=== PATIENT | female | born 1980 | race African-American/Black ===

== ENCOUNTER 2016-10-01 23:26 | Inpatient (IN) | payer BC ==
[~2016-10-01] VITALS: Ht 170.2 cm; Wt 62.1 kg
[~2016-10-01 23:26] MED LIST: ACET1TAB33 PO; ALPR0.25 PO; ALPR0.5T PO; AMIT10TA PO; AMIT75TA PO; FLUO20CA16 PO; METF500T9 PO; TRAM50TA PO; TRAZ50TA15 PO; WATERPILL
[2016-10-01 23:51] LABS: BILIRUBIN,URINE NEGATIVE (NEG); GLUCOSE,URINE NEGATIVE (NEG); NITRITE,URINE NEGATIVE (NEG); PROTEIN,URINE NEGATIVE (NEG-TRACE)
[2016-10-01 23:55] LABS: BACTERIA,URINE MANY /HPF (0-FEW); RBC,URINE OCC /HPF (0-2); SQUAMOUS EPITHELIAL CELL,UR MANY /LPF
[2016-10-02 00:39] LABS: BASO # 0.1 x10^3/uL (0.0-0.2); BASO % 1 % (0-3); EOS % 2 % (0-3); HEMATOCRIT 35.1 % (36.0-47.0); HEMOGLOBIN 11.6 g/dL (12.0-15.5); LYMPH # 3.2 x10^3/uL (1.0-4.8); LYMPH % 24 % (24-48); MEAN CORPUSCULAR HEMOGLOBIN 31 pg (25-35); MEAN CORPUSCULAR HGB CONC 33 g/dL (31-37); MEAN CORPUSCULAR VOLUME 95 fL (79-100); MONO % 7 % (0-9); NEUT % 66 % (31-73); PLATELET COUNT 217 x10^3/uL (140-400); RED BLOOD COUNT 3.69 x10^6/uL (3.50-5.40); RED CELL DISTRIBUTION WIDTH 13.5 % (11.5-14.5); WHITE BLOOD COUNT 13.3 x10^3/uL (4.0-11.0)
[2016-10-02] MEDS ORDERED: ONDANSETRON PF 4 MG/2 ML VIAL. IV ONE (00:45)
[2016-10-02] MEDS ORDERED: IV NORMAL SALINE 1000ML BAG 1,000 ML IV SCH (00:45)
--- NOTE | 2016-10-02 00:46 | ED.ADGEN ---
Past Medical History Past Medical History: Anxiety, Depression, Diabetes-Type II, Hypertension, Other Additional Past Medical Histor: PTSD Past Surgical History: , Other Additional Past Surgical Histo: bilateral carpal tunnel release Alcohol Use: Occasionally Drug Use: None Adult General Chief Complaint Chief Complaint: ABDOMINAL PAIN HPI HPI Patient is a 36 year old woman, history of type 2 diabetes mellitus, hypertension, anxiety, fibromyalgia, who presents to the emergency department with complaint of abdominal pain that woke her from sleep around 10 PM. Patient states she has been experiencing nausea, vomiting, epigastric and right upper quadrant abdominal pain. States the pain does radiate somewhat to her back. Denies any chest pain or shortness of breath. She she's been under increased stress lately due to family events. She denies any recent travel, states that she has had several episodes of "salty" emesis. No blood. Has not had a previous surgeries on her abdomen. She denies any fevers or chills, any focal weakness, numbness or tingling. No recent travel or Review of Systems Review of Systems Constitutional: Denies fever or chills. [] Eyes: Denies change in visual acuity. [] HENT: Denies nasal congestion or sore throat. [] Respiratory: Denies cough or shortness of breath. [] Cardiovascular: Denies chest pain or edema. [] GI: Abdominal pain, nausea, vomiting, no bloody stools or diarrhea. Last bowel was earlier today and was normal. No lower abdominal pain. : Denies dysuria. [] Musculoskeletal: Denies back pain or joint pain. [] Integument: Denies rash. [] Neurologic: Denies headache, focal weakness or sensory changes. [] Endocrine: Denies polyuria or polydipsia. [] Lymphatic: Denies swollen glands. [] Psychiatric: Denies depression or anxiety. [] Current Medications Current Medications Current Medications Medications (Trade) Dose Ordered Sig/Andressa Start Time Stop Time Status Last Admin Dose Admin Ceftriaxone Sodium 50 ml @ 100 mls/hr 1X ONCE 10/02/16 02:00 10/02/16 02:29 DC 10/02/16 04:58 100 MLS/HR Fentanyl Citrate (Fentanyl 2ml Vial) 25 mcg PRN Q15MIN PRN 10/02/16 00:45 10/03/16 00:44 10/02/16 01:57 25 MCG Ondansetron HCl (Zofran) 4 mg 1X ONCE 10/02/16 00:45 10/02/16 00:46 DC 10/02/16 01:02 4 MG Potassium Chloride 40 meq/ Sodium Chloride 1,020 ml @ 75 mls/hr 1X ONCE 10/02/16 01:30 10/02/16 15:05 10/02/16 01:56 75 MLS/HR Sodium Chloride 1,000 ml @ 1,000 mls/hr Q1H 10/02/16 00:45 10/02/16 01:44 DC 10/02/16 01:03 1,000 MLS/HR Allergies Allergies Allergies Coded Allergies Type Severity Reaction Last Updated Verified Sulfa (Sulfonamide Antibiotics) Allergy Severe swelling 01/07/16 Yes Physical Exam Physical Exam Constitutional: Well developed, well nourished, mild distress secondary to discomfort, non-toxic appearance. [] HENT: Normocephalic, atraumatic, bilateral external ears normal, oropharynx moist, no oral exudates, nose normal. [] Eyes: PERRLA, EOMI, conjunctiva normal, no discharge. [] Neck: Normal range of motion, no tenderness, supple, no stridor. [] Cardiovascular:Heart rate regular rhythm, no murmur , S1, S2, rubs or gallops. [ ] Lungs & Thorax: Bilateral breath sounds clear to auscultation, no wheezing, rhonchi, rales. No chest or crepitus or tenderness. [] Abdomen: Bowel sounds normal, soft, tenderness to palpation in the epigastric and right upper quadrant region, mild voluntary guarding, no rebound or rigidity , no masses, no pulsatile masses. [] Skin: Warm, dry, no erythema, no rash. [] Back: No tenderness, no CVA tenderness. [] Extremities: No tenderness, no cyanosis, no clubbing, ROM intact, no edema. [ Negative Homans sign.] Neurologic: Alert and oriented X 3, normal motor function, normal sensory function, no focal deficits noted. [] Psychologic: Affect normal, judgement normal, mood normal. [] Current Patient Data Vital Signs Vital Signs Date Time Temp Pulse Resp B/P (MAP) Pulse Ox O2 Delivery O2 Flow Rate FiO2 10/02/16 02:00 68 97/63 (74) 98 Room Air 10/01/16 23:48 98.6 98.6 Lab Values Laboratory Tests Test 10/01/16 22:41 10/01/16 23:45 10/02/16 00:01 10/02/16 00:30 POC Urine HCG, Qualitative Hcg negative (Negative) Urine Collection Type Unknown Urine Color Yellow Urine Clarity Cloudy Urine pH 6.0 Urine Specific [place] 1.015 Urine Protein Negative mg/dL (NEG-TRACE) Urine Glucose (UA) Negative mg/dL (NEG) Urine Ketones (Stick) Negative mg/dL (NEG) Urine Blood Negative (NEG) Urine Nitrite Negative (NEG) Urine Bilirubin Negative (NEG) Urine Urobilinogen Dipstick 1.0 mg/dL (0.2 mg/dL) Urine Leukocyte Esterase Moderate (NEG) Urine RBC Occ /HPF (0-2) Urine WBC 11-20 /HPF (0-4) Urine Squamous Epithelial Cells Many /LPF Urine Bacteria Many /HPF (0-FEW) Urine Mucus Marked /LPF Urine Opiates Screen Neg (NEG) Urine Methadone Screen Neg (NEG) Urine Barbiturates Neg (NEG) Urine Phencyclidine Screen Neg (NEG) Urine Amphetamine/Methamphetamine Neg (NEG) Urine Benzodiazepines Screen Neg (NEG) Urine Cocaine Screen Neg (NEG) Urine Cannabinoids Screen Pos (NEG) Urine Ethyl Alcohol Neg (NEG) White Blood Count 13.3 x10^3/uL (4.0-11.0) H Red Blood Count 3.69 x10^6/uL (3.50-5.40) Hemoglobin 11.6 g/dL (12.0-15.5) L Hematocrit 35.1 % (36.0-47.0) L Mean Corpuscular Volume 95 fL (79-100) Mean Corpuscular Hemoglobin 31 pg (25-35) Mean Corpuscular Hemoglobin Concent 33 g/dL (31-37) Red Cell Distribution Width 13.5 % (11.5-14.5) Platelet Count 217 x10^3/uL (140-400) Neutrophils (%) (Auto) 66 % (31-73) Lymphocytes (%) (Auto) 24 % (24-48) Monocytes (%) (Auto) 7 % (0-9) Eosinophils (%) (Auto) 2 % (0-3) Basophils (%) (Auto) 1 % (0-3) Neutrophils # (Auto) 8.9 x10^3uL (1.8-7.7) H Lymphocytes # (Auto) 3.2 x10^3/uL (1.0-4.8) Monocytes # (Auto) 0.9 x10^3/uL (0.0-1.1) Eosinophils # (Auto) 0.3 x10^3/uL (0.0-0.7) Basophils # (Auto) 0.1 x10^3/uL (0.0-0.2) Sodium Level 142 mmol/L (136-145) Potassium Level 2.8 mmol/L (3.5-5.1) *L Chloride Level 103 mmol/L (98-107) Carbon Dioxide Level 29 mmol/L (21-32) Anion Gap 10 (6-14) Blood Urea Nitrogen 6 mg/dL (7-20) L Creatinine 0.9 mg/dL (0.6-1.0) Estimated GFR (Cockcroft-Gault) 84.8 BUN/Creatinine Ratio 7 (6-20) Glucose Level 98 mg/dL (70-99) Calcium Level 9.5 mg/dL (8.5-10.1) Total Bilirubin 1.2 mg/dL (0.2-1.0) H Aspartate Amino Transferase (AST) 23 U/L (15-37) Alanine Aminotransferase (ALT) 39 U/L (14-59) Alkaline Phosphatase 52 U/L (46-116) Total Protein 8.0 g/dL (6.4-8.2) Albumin 4.5 g/dL (3.4-5.0) Albumin/Globulin Ratio 1.3 (1.0-1.7) Lipase 86 U/L (73-393) Laboratory Tests 10/02/16 00:30 Laboratory Tests 10/02/16 00:30 EKG EKG EC: Sinus rhythm, heart rate 57 beats/minute, upright axis, QTC of 419, NC 156, QRS of 80, occasional APCs noted, contour abnormalities noted in the inferior and anterior septal leads, abnormal ECG, does not meet STEMI criteria. As interpreted by me. [] Radiology/Procedures Radiology/Procedures [][facility] [address] [place], [place] [id number] IMAGING REPORT Signed PATIENT: ESTEPHANIE MORAN ACCOUNT: [id number] : 1980 LOCATION: ER AGE: 36 SEX: F EXAM STATUS: REG ER ORD. PHYSICIAN: BARBARA SOUZA DO REASON: Epigastric/RUQ Pain/N/V PROCEDURE: ABDOMEN LTD Right upper quadrant abdominal ultrasound History: RUQ PAIN Comparison: None. Technique: Transabdominal ultrasound images are obtained. Findings: Visualized pancreas is unremarkable. Liver is normal in echogenicity. No focal hepatic masses are identified. Portal flow is hepatopedal. Right hepatic lobe measures 14.6 cm. There is cholelithiasis. Sonographic Whitney sign is positive. Wall thickness upper limits of normal measuring 3 mm. No pericholecystic fluid. Common bile duct caliber is normal measuring 4 mm in diameter. The right kidney measures 9.2 cm in length and is without evidence of obstruction or stone. Visualized portions of the aorta and IVC have normal caliber. IMPRESSION: Cholelithiasis. Positive sonographic Whitney's sign. Gallbladder wall thickness upper limits of normal. Electronically signed by: Yony Burris MD (10/02/2016 1:39 AM) [facility] DICTATED and SIGNED BY: YONY BURRIS MD DATE: 10/02/165 CC: BARBARA SOUZA DO; GABRIEL MARTINEZ DO ~ Course & Med Decision Making Course & Med Decision Making Pertinent Labs and Imaging studies reviewed. (See chart for details) Patient with tenderness and right upper quadrant epigastric region, ultrasound obtained which reveals cholelithiasis, with top normal gallbladder wall thickness, and positive Whitney sign. There is no starting pericholecystic fluid. Patient does have a mild cytosis. No fever, nausea and vomiting are controlled in the ED after antiemetics administered. Patient received several aliquots of pain medication. Patient noted to have hypokalemia, with a potassium of 2.8, received IV and oral repletion in the ED. Patient is agreeable for [place] or the hospital for repletion, symptom management, and evaluation by surgery. Was also initiated on ceftriaxone in the ED. Findings as above discussed with Dr. Flowers of internal medicine, patient accepted his service as a full admission to the medical telemetry floor, with consultation placed for dental surgery and bridge orders entered per discussion. Dragon Disclaimer Dragon Disclaimer This electronic medical record was generated, in whole or in part, using a voice recognition dictation system. Departure Impression: Primary Impression: Hypokalemia Additional Impression: Cholecystitis, acute with cholelithiasis Disposition: ADMITTED INPATIENT Admitting Physician: Michele Flowers Condition: IMPROVED Problem Qualifiers BARBARA SOUZA DO Oct 02, 2016 00:46
[2016-10-02 00:47] LABS: BARBITURATES NEG (NEG); BENZODIAZEPINES NEG (NEG); CANNABINOIDS POS (NEG); COCAINE NEG (NEG); METHADONE NEG (NEG); OPIATES NEG (NEG); PHENCYCLIDINE NEG (NEG)
[2016-10-02 01:00] LABS: ALBUMIN 4.5 g/dL (3.4-5.0); ALBUMIN/GLOBULIN RATIO 1.3 (1.0-1.7); CALCIUM 9.5 mg/dL (8.5-10.1); CREATININE 0.9 mg/dL (0.6-1.0); GFR 84.8; TOTAL BILIRUBIN 1.2 mg/dL (0.2-1.0)
[2016-10-02 01:01] LABS: POTASSIUM 2.8 mmol/L (3.5-5.1)
[2016-10-02] MEDS: fentaNYL PF VIAL 100 MCG/2 ML VIAL IV PRN ×6 (01:02→20:56)
[2016-10-02] MEDS ORDERED: POTASSIUM CHLORIDE 40 MEQ in IV NORMAL SALINE 1000ML BAG 1,000 ML IV ONE (01:30)
--- NOTE | 2016-10-02 01:43 | RAD ---
Right upper quadrant abdominal ultrasound History: RUQ PAIN Comparison: None. Technique: Transabdominal ultrasound images are obtained. Findings: Visualized pancreas is unremarkable. Liver is normal in echogenicity. No focal hepatic masses are identified. Portal flow is hepatopedal. Right hepatic lobe measures 14.6 cm. There is cholelithiasis. Sonographic Whitney sign is positive. Wall thickness upper limits of normal measuring 3 mm. No pericholecystic fluid. Common bile duct caliber is normal measuring 4 mm in diameter. The right kidney measures 9.2 cm in length and is without evidence of obstruction or stone. Visualized portions of the aorta and IVC have normal caliber. IMPRESSION: Cholelithiasis. Positive sonographic Whitney's sign. Gallbladder wall thickness upper limits of normal. Electronically signed by: Yony Burris MD (10/02/2016 1:39 AM) [facility]
[2016-10-02] MEDS: IV NORMAL SALINE 1000ML BAG 1,000 ML IV SCH ×3 (02:30→20:56)
[2016-10-02] MEDS ORDERED: DEXTROSE 50% 25 GM / 50ML DISP.SYRIN. IV PRN (02:30)
[2016-10-02] MEDS ORDERED: ONDANSETRON PF 4 MG/2 ML VIAL. IV PRN ×2 (02:30→10:15)
[2016-10-02] MEDS ORDERED: ACETAMINOPHEN 325 MG TABLET. PO PRN (02:30)
[2016-10-02] MEDS ORDERED: POTASSIUM CHLORIDE 20 MEQ/15 ML ORAL LIQUID. PO ONE (02:45)
[2016-10-02 03:25] VITALS: BP 104/66
[2016-10-02] MEDS ORDERED: DICL100G18 TP (04:35)
[2016-10-02 07:00] VITALS: BP 97/61
--- NOTE | 2016-10-02 07:01 | EKG ---
[facility] [address] [place] [address] Test Date: 2016-10-02 Test Time: 01:08:31 Pat Name: ESTEPHANIE MORAN Department: Room: Gender: F Behavior Clinician: ABDIEL : 1980 Requested By: BARBARA SOUZA Order Number: [id number] Reading MD: Measurements Intervals [place] Rate: 57 P: 51 WI: 156 QRS: 26 QRSD: 80 T: 28 QT: 432 QTc: 419 Interpretive Statements SINUS RHYTHM ATRIAL PREMATURE COMPLEX(ES) QRS(T) CONTOUR ABNORMALITY CONSISTENT WITH ANTEROSEPTAL INFARCT AGE UNDETERMINED RI6.01 Unconfirmed report No previous ECG available for comparison
[2016-10-02] MEDS: INSULIN ASPART 300 UNITS/3 ML INSULN.PEN SQ SCH ×3 (07:38→17:00)
[2016-10-02] MEDS ORDERED: IV RINGERS,LACTATED 1000ML 1,000 ML IV SCH ×2 (10:03→14:30)
[2016-10-02] MEDS ORDERED: MORPHINE SULFATE 2 MG/ML DISP.SYRIN. IV PRN (10:15)
[2016-10-02] MEDS ORDERED: HYDROmorphone 2 MG/ML VIAL IV PRN (10:15)
[2016-10-02] MEDS ORDERED: LIDOCAINE 1% 1 ML SYRINGE. ID PRN (10:15)
[2016-10-02] MEDS ORDERED: fentaNYL PF VIAL 100 MCG/2 ML VIAL IV PRN ×2 (10:15)
[2016-10-02] MEDS ORDERED: PROCHLORPERAZINE 10 MG/2 ML VIAL. IV PRN ×2 (10:15→20:00)
[2016-10-02 11:17] VITALS: BP 91/53
--- NOTE | 2016-10-02 12:04 | PDOC2 ---
CONSULT Date of Consult Date of Consult DATE: 10/02/16 TIME: 12:01 History of Present Illness Reason for Visit: The patient is a 36-year-old female who reported to the emergency department with abdominal pain. The pain was located in the upper midabdomen and right upper quadrant and radiated to her back. She describes associated nausea and vomiting this morning. She reports similar previous episodes of pain over the last few months that were less intense. The pain is typically worse after eating. On arrival to the emergency department her evaluation included a sonogram which showed gallstones and suspected cholecystitis. Past Medical History Past Medical History Fibromyalgia Psych: Depression Endocrine: Diabetes Past Surgical History Past Surgical History , carpal tunnel Family History Family History: No Significant Social History ALCOHOL: none Drugs: None, Marijuana Current Problem List Problem List Problems Medical Problems: (1) Cholecystitis, acute with cholelithiasis Status: Acute Current Medications Current Medications Current Medications Fentanyl Citrate (Fentanyl 2ml Vial) 25 mcg PRN Q15MIN PRN IV PAIN GREATER THAN 3/10 Last administered on 10/02/16 01:57; Start 10/02/16 at 00:45; Stop at 00:44 Sodium Chloride 1,000 ml @ 1,000 mls/hr Q1H IV Last administered on 10/02/16 01:03; Start 10/02/16 at 00:45; Stop 10/02/16 at 01:44; Status DC Ondansetron HCl (Zofran) 4 mg 1X ONCE IV Last administered on 10/02/16 01:02 ; Start 10/02/16 at 00:45; Stop 10/02/16 at 00:46; Status DC Potassium Chloride 40 meq/ Sodium Chloride 1,020 ml @ 75 mls/hr 1X ONCE IV Last administered on 10/02/16 01:56; Start 10/02/16 at 01:30; Stop 10/02/16 at 15:05 Ceftriaxone Sodium 50 ml @ 100 mls/hr 1X ONCE IV Last administered on 04:58; Start 10/02/16 at 02:00; Stop 10/02/16 at 02:29; Status DC Ondansetron HCl (Zofran) 4 mg PRN Q8HRS PRN IV NAUSEA/VOMITING; Start 10/02/16 at 02:30; Stop 10/03/16 at 02:29 Fentanyl Citrate (Fentanyl 2ml Vial) 50 mcg PRN Q1HR PRN IV PAIN Last administered on 10/02/16t 08:53; Start 10/02/16 at 02:30; Stop 10/03/16 at 02:29 Sodium Chloride 1,000 ml @ 125 mls/hr Q8H IV ; Start 10/02/16 at 02:30; Stop at 02:29 Acetaminophen (Tylenol) 650 mg PRN Q4HRS PRN PO FEVER; Start 10/02/16 at 02:30 ; Stop 10/03/16 at 02:29 Insulin Aspart (NovoLOG) 0-5 UNITS TIDWMEALS SQ ; Start 10/02/16 at 08:00 Dextrose (Dextrose 50%-Water Syringe) 12.5 gm PRN Q15MIN PRN IV SEE COMMENTS; Start 10/02/16 at 02:30 Potassium Chloride (KCl Oral Soln) 40 meq 1X ONCE PO Last administered on 10/02t 03:37; Start 10/02/16 at 02:45; Stop 10/02/16 at 02:46; Status DC Ondansetron HCl (Zofran) 4 mg PRN Q6HRS PRN IV NAUSEA/VOMITING; Start 10/02/16 at 10:15; Stop 10/03/16 at 10:14 Fentanyl Citrate (Fentanyl 2ml Vial) 25 mcg PRN Q5MIN PRN IV MILD PAIN; Start 10/02/16 at 10:15; Stop 10/03/16 at 10:14 Fentanyl Citrate (Fentanyl 2ml Vial) 50 mcg PRN Q5MIN PRN IV MODERATE PAIN; Start 10/02/16 at 10:15; Stop 10/03/16 at 10:14 Morphine Sulfate 1 mg PRN Q10MIN PRN IV SEVERE PAIN; Start 10/02/16 at 10:15; Stop 10/03/16 at 10:14 Ringer's Solution 1,000 ml @ 30 mls/hr Q24H IV ; Start 10/02/16 at 10:03; Stop 10/02/16 at 11:36; Status DC Lidocaine HCl 2 ml PRN 1X PRN ID PRIOR TO IV START; Start 10/02/16 at 10:15; Stop 10/03/16 at 10:14 Hydromorphone HCl (Dilaudid) 0.5 mg PRN Q10MIN PRN IV SEV PAIN, Second choice; Start 10/02/16 at 10:15; Stop 10/03/16 at 10:14 Prochlorperazine Edisylate (Compazine) 5 mg PACU PRN PRN IV NAUSEA, MRX1; Start 10/02/16 at 10:15; Stop 10/03/16 at 10:14 Ceftriaxone Sodium 1 gm/ Sodium Chloride 50 ml @ 100 mls/hr Q24H IV Last administered on 10/02/16t 11:25; Start 10/02/16 at 10:30 Ringer's Solution 1,000 ml @ 30 mls/hr Q24H IV ; Start 10/02/16 at 14:30 Active Scripts Active Reported Voltaren (Diclofenac Sodium) 100 Gm Gel..gram. 1 Gm TP PRN PRN Acetaminophen-Cod #3 Tablet (Acetaminophen/Codeine Phosphate) 1 Each Tablet 1 Tab PO PRN Q6HRS PRN Amitriptyline Hcl 75 Mg Tablet 1 Tab PO QHS Metformin Hcl Er (Metformin Hcl) 500 Mg Tab.er.24h 1 Tab PO DAILY Xanax (Alprazolam) 0.5 Mg Tablet 0.5 Mg PO PRN Q6HRS PRN Xanax (Alprazolam) 0.25 Mg Tablet Unknown Dose PO PRN Q6HRS PRN [Waterpill] Tramadol Hcl 50 Mg Tablet 50 Mg PO Q6H PRN Trazodone Hcl 50 Mg Tablet Unknown Dose PO DAILY Prozac (Fluoxetine Hcl) 20 Mg Capsule Unknown Dose PO DAILY Amitriptyline Hcl 10 Mg Tablet Unknown Dose PO DAILY Allergies Allergies: Coded Allergies: Sulfa (Sulfonamide Antibiotics) (Verified Allergy, Severe, swelling, 01/06) ROS General: YES: Other (weight loss) PSYCHOLOGICAL ROS: No: Anxiety, Behavioral Disorder, Concentration difficultie , Decreased libido, Depression, Disorientation, Hallucinations, Hostility, Irritablity, Memory difficulties, Mood Swings, Obsessive thoughts, Physical abuse, Sexual abuse, Sleep disturbances, Suicidal ideation, Other Eyes: No Blurry vision, No Decreased vision, No Double vision, No Dry eyes, No Excessive tearing, No Eye Pain, No Itchy Eyes, No Loss of vision, No Photophobia , No Scotomata, No Uses contacts, No Uses glasses, No Other HEENT: No: Heacaches, Visual Changes, Hearing change, Nasal congestion, Nasal discharge, Oral lesions, Sinus pain, Sore Throat, Epistaxis, Sneezing, Snoring, Tinnitus, Vertigo, Vocal changes, Other ALLERGY AND IMMUNOLOGY: No: Hives, Insect Bite Sensitivity, Itchy/Watery Eyes, Nasal Congestion, Post Nasal Drip, Seasonal Allergies, Other Hematological and Lymphatic: No: Bleeding Problems, Blood Clots, Blood Transfusions, Brusing, Night Sweats, Pallor, Swollen Lymph Nodes, Other ENDOCRINE: No: Breast Changes, Galactorrhea, Hair Pattern Changes, Hot Flashes , Malaise/lethargy, Mood Swings, Palpitations, Polydipsia/polyuria, Skin Changes , Temperature Intolerance, Unexpected Weight Changes, Other Breast: No New/Changing Breast Lumps, No Nipple changes, No Nipple discharge, No Other Respiratory: No: Cough, Hemoptysis, Orthopnea, Pleuritic Pain, Shortness of breath, SOB with excertion, Sputum Changes, Stridor, Tachypnea, Wheezing, Other Cardiovascular: No Chest Pain, No Palpitations, No Orthopnea, No Paroxysmal Noc. Dyspnea, No Edema, No Lt Headedness, No Other Gastrointestinal: Yes Nausea, Yes Abdominal Pain Genitourinary: No Dysuria, No Frequency, No Incontinence, No Hematuria, No Retention, No Discharge, No Urgency, No Pain, No Flank Pain, No Other, No , No , No , No , No , No , No Musculoskeletal: No Gait Disturbance, No Joint Pain, No Joint Stiffness, No Joint Swelling, No Muscle Pain, No Muscular Weakness, No Pain In:, No Swelling In:, No Other Neurological: No Behavorial Changes, No Bowel/Bladder ControlChng, No Confusion , No Dizziness, No Gait Disturbance, No Headaches, No Impaired Coord/balance, No Memory Loss, No Numbness/Tingling, No Seizures, No Speech Problems, No Tremors, No Visual Changes, No Weakness, No Other Skin: No Dry Skin, No Eczema, No Hair Changes, No Lumps, No Mole Changes, No Mottling, No Nail Changes, No Pruritus, No Rash, No Skin Lesion Changes, No Other, No Acne Physical Exam General: Alert, Oriented X3, Cooperative HEENT: Atraumatic Lungs: Clear to auscultation Heart: Regular rate Abdomen: Soft (tender in RUQ and upper mid abdomen), No masses Extremities: No clubbing, No cyanosis Skin: No rashes, No breakdown Neuro: Normal speech, Strength at 5/5 X4 ext Psych/Mental Status: Mental status NL MUSCULOSKELETAL: No joint tenderness, No deformity Vitals VITALS Vital Signs Date Time Temp Pulse Resp B/P (MAP) Pulse Ox O2 Delivery O2 Flow Rate FiO2 10/02/16 11:17 98.5 59 18 91/53 (66) 97 Room Air 98.5 Labs Labs Laboratory Tests Test 10/01/16 22:41 10/01/16 23:45 10/02/16 00:01 10/02/16 00:30 Bedside Urine HCG, Qualitative Hcg negative (Negative) Urine Collection Type Unknown Urine Color Yellow Urine Clarity Cloudy Urine pH 6.0 Urine Specific [place] 1.015 Urine Protein Negative mg/dL (NEG-TRACE) Urine Glucose (UA) Negative mg/dL (NEG) Urine Ketones (Stick) Negative mg/dL (NEG) Urine Blood Negative (NEG) Urine Nitrite Negative (NEG) Urine Bilirubin Negative (NEG) Urine Urobilinogen Dipstick 1.0 mg/dL (0.2 mg/dL) Urine Leukocyte Esterase Moderate (NEG) Urine RBC Occ /HPF (0-2) Urine WBC 11-20 /HPF (0-4) Urine Squamous Epithelial Cells Many /LPF Urine Bacteria Many /HPF (0-FEW) Urine Mucus Marked /LPF Urine Opiates Screen Neg (NEG) Urine Methadone Screen Neg (NEG) Urine Barbiturates Neg (NEG) Urine Phencyclidine Screen Neg (NEG) Urine Amphetamine/Methamphetamine Neg (NEG) Urine Benzodiazepines Screen Neg (NEG) Urine Cocaine Screen Neg (NEG) Urine Cannabinoids Screen Pos (NEG) Urine Ethyl Alcohol Neg (NEG) White Blood Count 13.3 x10^3/uL (4.0-11.0) Red Blood Count 3.69 x10^6/uL (3.50-5.40) Hemoglobin 11.6 g/dL (12.0-15.5) Hematocrit 35.1 % (36.0-47.0) Mean Corpuscular Volume 95 fL (79-100) Mean Corpuscular Hemoglobin 31 pg (25-35) Mean Corpuscular Hemoglobin Concent 33 g/dL (31-37) Red Cell Distribution Width 13.5 % (11.5-14.5) Platelet Count 217 x10^3/uL (140-400) Neutrophils (%) (Auto) 66 % (31-73) Lymphocytes (%) (Auto) 24 % (24-48) Monocytes (%) (Auto) 7 % (0-9) Eosinophils (%) (Auto) 2 % (0-3) Basophils (%) (Auto) 1 % (0-3) Neutrophils # (Auto) 8.9 x10^3uL (1.8-7.7) Lymphocytes # (Auto) 3.2 x10^3/uL (1.0-4.8) Monocytes # (Auto) 0.9 x10^3/uL (0.0-1.1) Eosinophils # (Auto) 0.3 x10^3/uL (0.0-0.7) Basophils # (Auto) 0.1 x10^3/uL (0.0-0.2) Sodium Level 142 mmol/L (136-145) Potassium Level 2.8 mmol/L (3.5-5.1) Chloride Level 103 mmol/L (98-107) Carbon Dioxide Level 29 mmol/L (21-32) Anion Gap 10 (6-14) Blood Urea Nitrogen 6 mg/dL (7-20) Creatinine 0.9 mg/dL (0.6-1.0) Estimated GFR (Cockcroft-Gault) 84.8 BUN/Creatinine Ratio 7 (6-20) Glucose Level 98 mg/dL (70-99) Calcium Level 9.5 mg/dL (8.5-10.1) Total Bilirubin 1.2 mg/dL (0.2-1.0) Aspartate Amino Transf (AST/SGOT) 23 U/L (15-37) Alanine Aminotransferase (ALT/SGPT) 39 U/L (14-59) Alkaline Phosphatase 52 U/L (46-116) Total Protein 8.0 g/dL (6.4-8.2) Albumin 4.5 g/dL (3.4-5.0) Albumin/Globulin Ratio 1.3 (1.0-1.7) Lipase 86 U/L (73-393) Test 10/02/16 06:59 Glucose (Fingerstick) 91 mg/dL (70-99) Laboratory Tests Test 10/01/16 22:41 10/01/16 23:45 10/02/16 00:01 10/02/16 00:30 Bedside Urine HCG, Qualitative Hcg negative (Negative) Urine Collection Type Unknown Urine Color Yellow Urine Clarity Cloudy Urine pH 6.0 Urine Specific [place] 1.015 Urine Protein Negative mg/dL (NEG-TRACE) Urine Glucose (UA) Negative mg/dL (NEG) Urine Ketones (Stick) Negative mg/dL (NEG) Urine Blood Negative (NEG) Urine Nitrite Negative (NEG) Urine Bilirubin Negative (NEG) Urine Urobilinogen Dipstick 1.0 mg/dL (0.2 mg/dL) Urine Leukocyte Esterase Moderate (NEG) Urine RBC Occ /HPF (0-2) Urine WBC 11-20 /HPF (0-4) Urine Squamous Epithelial Cells Many /LPF Urine Bacteria Many /HPF (0-FEW) Urine Mucus Marked /LPF Urine Opiates Screen Neg (NEG) Urine Methadone Screen Neg (NEG) Urine Barbiturates Neg (NEG) Urine Phencyclidine Screen Neg (NEG) Urine Amphetamine/Methamphetamine Neg (NEG) Urine Benzodiazepines Screen Neg (NEG) Urine Cocaine Screen Neg (NEG) Urine Cannabinoids Screen Pos (NEG) Urine Ethyl Alcohol Neg (NEG) White Blood Count 13.3 x10^3/uL (4.0-11.0) Red Blood Count 3.69 x10^6/uL (3.50-5.40) Hemoglobin 11.6 g/dL (12.0-15.5) Hematocrit 35.1 % (36.0-47.0) Mean Corpuscular Volume 95 fL (79-100) Mean Corpuscular Hemoglobin 31 pg (25-35) Mean Corpuscular Hemoglobin Concent 33 g/dL (31-37) Red Cell Distribution Width 13.5 % (11.5-14.5) Platelet Count 217 x10^3/uL (140-400) Neutrophils (%) (Auto) 66 % (31-73) Lymphocytes (%) (Auto) 24 % (24-48) Monocytes (%) (Auto) 7 % (0-9) Eosinophils (%) (Auto) 2 % (0-3) Basophils (%) (Auto) 1 % (0-3) Neutrophils # (Auto) 8.9 x10^3uL (1.8-7.7) Lymphocytes # (Auto) 3.2 x10^3/uL (1.0-4.8) Monocytes # (Auto) 0.9 x10^3/uL (0.0-1.1) Eosinophils # (Auto) 0.3 x10^3/uL (0.0-0.7) Basophils # (Auto) 0.1 x10^3/uL (0.0-0.2) Sodium Level 142 mmol/L (136-145) Potassium Level 2.8 mmol/L (3.5-5.1) Chloride Level 103 mmol/L (98-107) Carbon Dioxide Level 29 mmol/L (21-32) Anion Gap 10 (6-14) Blood Urea Nitrogen 6 mg/dL (7-20) Creatinine 0.9 mg/dL (0.6-1.0) Estimated GFR (Cockcroft-Gault) 84.8 BUN/Creatinine Ratio 7 (6-20) Glucose Level 98 mg/dL (70-99) Calcium Level 9.5 mg/dL (8.5-10.1) Total Bilirubin 1.2 mg/dL (0.2-1.0) Aspartate Amino Transf (AST/SGOT) 23 U/L (15-37) Alanine Aminotransferase (ALT/SGPT) 39 U/L (14-59) Alkaline Phosphatase 52 U/L (46-116) Total Protein 8.0 g/dL (6.4-8.2) Albumin 4.5 g/dL (3.4-5.0) Albumin/Globulin Ratio 1.3 (1.0-1.7) Lipase 86 U/L (73-393) Test 10/02/16 06:59 Glucose (Fingerstick) 91 mg/dL (70-99) Images Images Abdominal Sonogram: IMPRESSION: Cholelithiasis. Positive sonographic Whitney's sign. Gallbladder wall thickness upper limits of normal. Assessment/Plan Assessment/Plan Abdominal pain, gallstones, suspect cholecystitis. I discussed with the patient surgical treatment with a laparoscopic cholecystectomy. The details and risks of surgery were discussed. She understands and would like to proceed. WILVER BARAKAT MD Oct 02, 2016 12:04
--- NOTE | 2016-10-02 12:11 | PDOC1 ---
History and Physical Date of Admission Date of Admission DATE: 10/02/16 TIME: 12:05 Identification/Chief Complaint Chief Complaint abd pain Problems: Source Source: Caregiver, Chart review, Patient History of Present Illness History of Present Illness 36 AA female, acute onset of RUQ pain, some nausea and emesis, no fevers, no radiation, no known alleviating and precipitating factors.Smokes weeds to help with her pain of fibromyalgia, NO uirnary sxs, AT ER,. WBC 13, UTI on UA and cholelcystitis with positive murphys sign on imaging. K 2/.9, some sinus arrhthymia on monitor and EKG PLanned for OR later, Got 40 PO at ER and 40 meqs in current IVF bag running too , NO mag. 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 NO sinus arrhythmia hx on family, denies coccaine Positive for cannabinoids in UDS Past Medical History Cardiovascular: No pertinent hx Pulmonary: No pertinent hx GI: No pertinent hx Heme/Onc: No pertinent hx Psych: Depression, Other (fibromyalgia) Rheumatologic: No pertinent hx Infectious disease: No pertinent hx ENT: No pertinent hx Endocrine: Diabetes Dermatology: No pertinent hx Past Surgical History Past Surgical History: Family History Family History: No Significant, Hypertension Social History Smoke: No ALCOHOL: none Drugs: None, Marijuana Current Problem List Problem List Problems Medical Problems: (1) Cholecystitis, acute with cholelithiasis Status: Acute Problems: Current Medications Current Medications Current Medications Fentanyl Citrate (Fentanyl 2ml Vial) 25 mcg PRN Q15MIN PRN IV PAIN GREATER THAN 3/10 Last administered on 10/02/16 01:57; Start 10/02/16 at 00:45; Stop at 00:44 Sodium Chloride 1,000 ml @ 1,000 mls/hr Q1H IV Last administered on 10/02/16 01:03; Start 10/02/16 at 00:45; Stop 10/02/16 at 01:44; Status DC Ondansetron HCl (Zofran) 4 mg 1X ONCE IV Last administered on 10/02/16 01:02 ; Start 10/02/16 at 00:45; Stop 10/02/16 at 00:46; Status DC Potassium Chloride 40 meq/ Sodium Chloride 1,020 ml @ 75 mls/hr 1X ONCE IV Last administered on 10/02/16 01:56; Start 10/02/16 at 01:30; Stop 10/02/16 at 15:05 Ceftriaxone Sodium 50 ml @ 100 mls/hr 1X ONCE IV Last administered on 04:58; Start 10/02/16 at 02:00; Stop 10/02/16 at 02:29; Status DC Ondansetron HCl (Zofran) 4 mg PRN Q8HRS PRN IV NAUSEA/VOMITING; Start 10/02/16 at 02:30; Stop 10/03/16 at 02:29 Fentanyl Citrate (Fentanyl 2ml Vial) 50 mcg PRN Q1HR PRN IV PAIN Last administered on 10/02/16 08:53; Start 10/02/16 at 02:30; Stop 10/03/16 at 02:29 Sodium Chloride 1,000 ml @ 125 mls/hr Q8H IV ; Start 10/02/16 at 02:30; Stop at 02:29 Acetaminophen (Tylenol) 650 mg PRN Q4HRS PRN PO FEVER; Start 10/02/16 at 02:30 ; Stop 10/03/16 at 02:29 Insulin Aspart (NovoLOG) 0-5 UNITS TIDWMEALS SQ ; Start 10/02/16 at 08:00 Dextrose (Dextrose 50%-Water Syringe) 12.5 gm PRN Q15MIN PRN IV SEE COMMENTS; Start 10/02/16 at 02:30 Potassium Chloride (KCl Oral Soln) 40 meq 1X ONCE PO Last administered on 10/02 03:37; Start 10/02/16 at 02:45; Stop 10/02/16 at 02:46; Status DC Ondansetron HCl (Zofran) 4 mg PRN Q6HRS PRN IV NAUSEA/VOMITING; Start 10/02/16 at 10:15; Stop 10/03/16 at 10:14 Fentanyl Citrate (Fentanyl 2ml Vial) 25 mcg PRN Q5MIN PRN IV MILD PAIN; Start 10/02/16 at 10:15; Stop 10/03/16 at 10:14 Fentanyl Citrate (Fentanyl 2ml Vial) 50 mcg PRN Q5MIN PRN IV MODERATE PAIN; Start 10/02/16 at 10:15; Stop 10/03/16 at 10:14 Morphine Sulfate 1 mg PRN Q10MIN PRN IV SEVERE PAIN; Start 10/02/16 at 10:15; Stop 10/03/16 at 10:14 Ringer's Solution 1,000 ml @ 30 mls/hr Q24H IV ; Start 10/02/16 at 10:03; Stop 10/02/16 at 11:36; Status DC Lidocaine HCl 2 ml PRN 1X PRN ID PRIOR TO IV START; Start 10/02/16 at 10:15; Stop 10/03/16 at 10:14 Hydromorphone HCl (Dilaudid) 0.5 mg PRN Q10MIN PRN IV SEV PAIN, Second choice; Start 10/02/16 at 10:15; Stop 10/03/16 at 10:14 Prochlorperazine Edisylate (Compazine) 5 mg PACU PRN PRN IV NAUSEA, MRX1; Start 10/02/16 at 10:15; Stop 10/03/16 at 10:14 Ceftriaxone Sodium 1 gm/ Sodium Chloride 50 ml @ 100 mls/hr Q24H IV Last administered on 10/02/16t 11:25; Start 10/02/16 at 10:30 Ringer's Solution 1,000 ml @ 30 mls/hr Q24H IV ; Start 10/02/16 at 14:30 Active Scripts Active Reported Voltaren (Diclofenac Sodium) 100 Gm Gel..gram. 1 Gm TP PRN PRN Acetaminophen-Cod #3 Tablet (Acetaminophen/Codeine Phosphate) 1 Each Tablet 1 Tab PO PRN Q6HRS PRN Amitriptyline Hcl 75 Mg Tablet 1 Tab PO QHS Metformin Hcl Er (Metformin Hcl) 500 Mg Tab.er.24h 1 Tab PO DAILY Xanax (Alprazolam) 0.5 Mg Tablet 0.5 Mg PO PRN Q6HRS PRN Xanax (Alprazolam) 0.25 Mg Tablet Unknown Dose PO PRN Q6HRS PRN [Waterpill] Tramadol Hcl 50 Mg Tablet 50 Mg PO Q6H PRN Trazodone Hcl 50 Mg Tablet Unknown Dose PO DAILY Prozac (Fluoxetine Hcl) 20 Mg Capsule Unknown Dose PO DAILY Amitriptyline Hcl 10 Mg Tablet Unknown Dose PO DAILY Allergies Allergies: Coded Allergies: Sulfa (Sulfonamide Antibiotics) (Verified Allergy, Severe, swelling, 01/06) ROS General: No: Chills, Night Sweats, Fatigue, Malaise, Appetite, Other PSYCHOLOGICAL ROS: No: Anxiety, Behavioral Disorder, Concentration difficultie , Decreased libido, Depression, Disorientation, Hallucinations, Hostility, Irritablity, Memory difficulties, Mood Swings, Obsessive thoughts, Physical abuse, Sexual abuse, Sleep disturbances, Suicidal ideation, Other Eyes: No Blurry vision, No Decreased vision, No Double vision, No Dry eyes, No Excessive tearing, No Eye Pain, No Itchy Eyes, No Loss of vision, No Photophobia , No Scotomata, No Uses contacts, No Uses glasses, No Other HEENT: No: Heacaches, Visual Changes, Hearing change, Nasal congestion, Nasal discharge, Oral lesions, Sinus pain, Sore Throat, Epistaxis, Sneezing, Snoring, Tinnitus, Vertigo, Vocal changes, Other ALLERGY AND IMMUNOLOGY: No: Hives, Insect Bite Sensitivity, Itchy/Watery Eyes, Nasal Congestion, Post Nasal Drip, Seasonal Allergies, Other Hematological and Lymphatic: No: Bleeding Problems, Blood Clots, Blood Transfusions, Brusing, Night Sweats, Pallor, Swollen Lymph Nodes, Other ENDOCRINE: No: Breast Changes, Galactorrhea, Hair Pattern Changes, Hot Flashes , Malaise/lethargy, Mood Swings, Palpitations, Polydipsia/polyuria, Skin Changes , Temperature Intolerance, Unexpected Weight Changes, Other Respiratory: No: Cough, Hemoptysis, Orthopnea, Pleuritic Pain, Shortness of breath, SOB with excertion, Sputum Changes, Stridor, Tachypnea, Wheezing, Other Cardiovascular: No Chest Pain, No Palpitations, No Orthopnea, No Paroxysmal Noc. Dyspnea, No Edema, No Lt Headedness, No Other Gastrointestinal: Yes Nausea, Yes Vomiting, Yes Abdominal Pain Genitourinary: No Dysuria, No Frequency, No Incontinence, No Hematuria, No Retention, No Discharge, No Urgency, No Pain, No Flank Pain, No Other, No , No , No , No , No , No , No Musculoskeletal: No Gait Disturbance, No Joint Pain, No Joint Stiffness, No Joint Swelling, No Muscle Pain, No Muscular Weakness, No Pain In:, No Swelling In:, No Other Neurological: No Behavorial Changes, No Bowel/Bladder ControlChng, No Confusion , No Dizziness, No Gait Disturbance, No Headaches, No Impaired Coord/balance, No Memory Loss, No Numbness/Tingling, No Seizures, No Speech Problems, No Tremors, No Visual Changes, No Weakness, No Other Skin: No Dry Skin, No Eczema, No Hair Changes, No Lumps, No Mole Changes, No Mottling, No Nail Changes, No Pruritus, No Rash, No Skin Lesion Changes, No Other, No Acne Physical Exam General: Alert, Oriented X3, Cooperative, No acute distress HEENT: Atraumatic, PERRLA, EOMI Lungs: Clear to auscultation, Normal air movement Heart: S1S2, RRR, no thrills, no rubs, no gallops Cardiovascular: S1, S2 Breasts: Normal, Rt breast nml w/o mass, Lt breast nml w/o mass, Nipples normal Abdomen: Soft, Other (tenderness RUQ area) Rectal Exam: not examined PELVIC: Nml ext genitalia Extremities: No clubbing, No cyanosis, No edema, Normal pulses, No tenderness/ swelling Skin: No rashes Neuro: Normal gait, Normal speech, Strength at 5/5 X4 ext, Normal tone, Sensation intact, Cranial nerves 3-12 NL, Reflexes 2+ Psych/Mental Status: Mental status NL, Mood NL Vitals Vitals Vital Signs Date Time Temp Pulse Resp B/P (MAP) Pulse Ox O2 Delivery O2 Flow Rate FiO2 10/02/16 11:17 98.5 59 18 91/53 (66) 97 Room Air 98.5 Labs Labs Laboratory Tests Test 10/01/16 22:41 10/01/16 23:45 10/02/16 00:01 10/02/16 00:30 Bedside Urine HCG, Qualitative Hcg negative (Negative) Urine Collection Type Unknown Urine Color Yellow Urine Clarity Cloudy Urine pH 6.0 Urine Specific [place] 1.015 Urine Protein Negative mg/dL (NEG-TRACE) Urine Glucose (UA) Negative mg/dL (NEG) Urine Ketones (Stick) Negative mg/dL (NEG) Urine Blood Negative (NEG) Urine Nitrite Negative (NEG) Urine Bilirubin Negative (NEG) Urine Urobilinogen Dipstick 1.0 mg/dL (0.2 mg/dL) Urine Leukocyte Esterase Moderate (NEG) Urine RBC Occ /HPF (0-2) Urine WBC 11-20 /HPF (0-4) Urine Squamous Epithelial Cells Many /LPF Urine Bacteria Many /HPF (0-FEW) Urine Mucus Marked /LPF Urine Opiates Screen Neg (NEG) Urine Methadone Screen Neg (NEG) Urine Barbiturates Neg (NEG) Urine Phencyclidine Screen Neg (NEG) Urine Amphetamine/Methamphetamine Neg (NEG) Urine Benzodiazepines Screen Neg (NEG) Urine Cocaine Screen Neg (NEG) Urine Cannabinoids Screen Pos (NEG) Urine Ethyl Alcohol Neg (NEG) White Blood Count 13.3 x10^3/uL (4.0-11.0) Red Blood Count 3.69 x10^6/uL (3.50-5.40) Hemoglobin 11.6 g/dL (12.0-15.5) Hematocrit 35.1 % (36.0-47.0) Mean Corpuscular Volume 95 fL (79-100) Mean Corpuscular Hemoglobin 31 pg (25-35) Mean Corpuscular Hemoglobin Concent 33 g/dL (31-37) Red Cell Distribution Width 13.5 % (11.5-14.5) Platelet Count 217 x10^3/uL (140-400) Neutrophils (%) (Auto) 66 % (31-73) Lymphocytes (%) (Auto) 24 % (24-48) Monocytes (%) (Auto) 7 % (0-9) Eosinophils (%) (Auto) 2 % (0-3) Basophils (%) (Auto) 1 % (0-3) Neutrophils # (Auto) 8.9 x10^3uL (1.8-7.7) Lymphocytes # (Auto) 3.2 x10^3/uL (1.0-4.8) Monocytes # (Auto) 0.9 x10^3/uL (0.0-1.1) Eosinophils # (Auto) 0.3 x10^3/uL (0.0-0.7) Basophils # (Auto) 0.1 x10^3/uL (0.0-0.2) Sodium Level 142 mmol/L (136-145) Potassium Level 2.8 mmol/L (3.5-5.1) Chloride Level 103 mmol/L (98-107) Carbon Dioxide Level 29 mmol/L (21-32) Anion Gap 10 (6-14) Blood Urea Nitrogen 6 mg/dL (7-20) Creatinine 0.9 mg/dL (0.6-1.0) Estimated GFR (Cockcroft-Gault) 84.8 BUN/Creatinine Ratio 7 (6-20) Glucose Level 98 mg/dL (70-99) Calcium Level 9.5 mg/dL (8.5-10.1) Total Bilirubin 1.2 mg/dL (0.2-1.0) Aspartate Amino Transf (AST/SGOT) 23 U/L (15-37) Alanine Aminotransferase (ALT/SGPT) 39 U/L (14-59) Alkaline Phosphatase 52 U/L (46-116) Total Protein 8.0 g/dL (6.4-8.2) Albumin 4.5 g/dL (3.4-5.0) Albumin/Globulin Ratio 1.3 (1.0-1.7) Lipase 86 U/L (73-393) Test 10/02/16 06:59 Glucose (Fingerstick) 91 mg/dL (70-99) Laboratory Tests Test 10/01/16 22:41 10/01/16 23:45 10/02/16 00:01 10/02/16 00:30 Bedside Urine HCG, Qualitative Hcg negative (Negative) Urine Collection Type Unknown Urine Color Yellow Urine Clarity Cloudy Urine pH 6.0 Urine Specific [place] 1.015 Urine Protein Negative mg/dL (NEG-TRACE) Urine Glucose (UA) Negative mg/dL (NEG) Urine Ketones (Stick) Negative mg/dL (NEG) Urine Blood Negative (NEG) Urine Nitrite Negative (NEG) Urine Bilirubin Negative (NEG) Urine Urobilinogen Dipstick 1.0 mg/dL (0.2 mg/dL) Urine Leukocyte Esterase Moderate (NEG) Urine RBC Occ /HPF (0-2) Urine WBC 11-20 /HPF (0-4) Urine Squamous Epithelial Cells Many /LPF Urine Bacteria Many /HPF (0-FEW) Urine Mucus Marked /LPF Urine Opiates Screen Neg (NEG) Urine Methadone Screen Neg (NEG) Urine Barbiturates Neg (NEG) Urine Phencyclidine Screen Neg (NEG) Urine Amphetamine/Methamphetamine Neg (NEG) Urine Benzodiazepines Screen Neg (NEG) Urine Cocaine Screen Neg (NEG) Urine Cannabinoids Screen Pos (NEG) Urine Ethyl Alcohol Neg (NEG) White Blood Count 13.3 x10^3/uL (4.0-11.0) Red Blood Count 3.69 x10^6/uL (3.50-5.40) Hemoglobin 11.6 g/dL (12.0-15.5) Hematocrit 35.1 % (36.0-47.0) Mean Corpuscular Volume 95 fL (79-100) Mean Corpuscular Hemoglobin 31 pg (25-35) Mean Corpuscular Hemoglobin Concent 33 g/dL (31-37) Red Cell Distribution Width 13.5 % (11.5-14.5) Platelet Count 217 x10^3/uL (140-400) Neutrophils (%) (Auto) 66 % (31-73) Lymphocytes (%) (Auto) 24 % (24-48) Monocytes (%) (Auto) 7 % (0-9) Eosinophils (%) (Auto) 2 % (0-3) Basophils (%) (Auto) 1 % (0-3) Neutrophils # (Auto) 8.9 x10^3uL (1.8-7.7) Lymphocytes # (Auto) 3.2 x10^3/uL (1.0-4.8) Monocytes # (Auto) 0.9 x10^3/uL (0.0-1.1) Eosinophils # (Auto) 0.3 x10^3/uL (0.0-0.7) Basophils # (Auto) 0.1 x10^3/uL (0.0-0.2) Sodium Level 142 mmol/L (136-145) Potassium Level 2.8 mmol/L (3.5-5.1) Chloride Level 103 mmol/L (98-107) Carbon Dioxide Level 29 mmol/L (21-32) Anion Gap 10 (6-14) Blood Urea Nitrogen 6 mg/dL (7-20) Creatinine 0.9 mg/dL (0.6-1.0) Estimated GFR (Cockcroft-Gault) 84.8 BUN/Creatinine Ratio 7 (6-20) Glucose Level 98 mg/dL (70-99) Calcium Level 9.5 mg/dL (8.5-10.1) Total Bilirubin 1.2 mg/dL (0.2-1.0) Aspartate Amino Transf (AST/SGOT) 23 U/L (15-37) Alanine Aminotransferase (ALT/SGPT) 39 U/L (14-59) Alkaline Phosphatase 52 U/L (46-116) Total Protein 8.0 g/dL (6.4-8.2) Albumin 4.5 g/dL (3.4-5.0) Albumin/Globulin Ratio 1.3 (1.0-1.7) Lipase 86 U/L (73-393) Test 10/02/16 06:59 Glucose (Fingerstick) 91 mg/dL (70-99) VTE Prophylaxis Ordered VTE Prophylaxis Devices: Yes VTE Pharmacological Prophylaxi: Yes Assessment/Plan Assessment/Plan 1. Acute cholecystitis 2. Critical hypokalemia 3. MArijuana use 4. Firbomyalgia 5. Sinus arrhythmia (HR between 50-60s) PLAn: OR later lap hammad Recheck K and mag and CBC timothy IF arrhythmia persists despite correction of K and normal mag levels.,then do echo (likely marijuana effect?) MAy check TSH NPO, IVF till OR Dw VINCENZO Luisa at bedside and pt LEXIS FONTENOT MD Oct 02, 2016 12:11
[2016-10-02] MEDS ORDERED: LIDOCAINE 2% PF Vial for OR 5 ML VIAL. ONE (13:13)
[2016-10-02] MEDS ORDERED: fentaNYL PF VIAL 100 MCG/2 ML VIAL ONE ×2 (13:13→15:11)
[2016-10-02] MEDS ORDERED: PROPOFOL 20 ML IV ONE (13:13)
[2016-10-02] MEDS ORDERED: ROCURONIUM 50 MG/5 ML VIAL. ONE (13:14)
[2016-10-02] MEDS ORDERED: BUPIVACAINE-EPI 0.5%-1:200000 50 ML VIAL. ONE (13:39)
[2016-10-02] MEDS ORDERED: SURGICEL HEMOSTAT 4X8 EACH. ONE (13:39)
[2016-10-02] MEDS ORDERED: IOHEXOL 300 MG/ML 50 ML VIAL. ONE (13:39)
[2016-10-02] MEDS ORDERED: DESFLURANE > 120 MINUTES IH ONE (13:55)
[2016-10-02] MEDS ORDERED: ONDANSETRON PF 4 MG/2 ML VIAL. ONE (14:09)
[2016-10-02] MEDS ORDERED: DEXAMETHASONE SOD PHOS 20 MG/5 ML VIAL. ONE (14:09)
[2016-10-02] MEDS ORDERED: PHENYLEPHRINE in 0.9% NACL PF 1 MG/10 ML DISP.SYRIN. IV ONE (14:09)
[2016-10-02] MEDS ORDERED: GLYCOPYRROLATE 1 MG/5 ML VIAL. ONE (14:51)
[2016-10-02] MEDS ORDERED: NEOSTIGMINE METHYLSULFATE 5 MG/5 ML SYRINGE. ONE (14:52)
--- NOTE | 2016-10-02 15:10 | RAD ---
Indication operative cholangiogram. Assess for potential complication. Assess for potential choledocholithiasis. Protocol study. For members of the Department of surgery fluoroscopy was provided. 3 fluoroscopic spot images were obtained. Fluoroscopy time associated with the imaging was 15 seconds. Those intrahepatic radicles which are seen appear unremarkable. The common hepatic and common bile ducts appear normal. Contrast flows unremarkably into the duodenum. IMPRESSION: Normal operative cholangiogram
--- NOTE | 2016-10-02 16:20 | PDOC4 ---
Operative Note Operative Note Operative Note: Preoperative Diagnosis: Calculous cholecystitis Postoperative Diagnosis: Same Procedure: Laparoscopic cholecystectomy with intraoperative cholangiogram Surgeons: Carlos Asst: Nohemy MARTINEZ Anesthesia: Gen. Estimated Blood Loss: 10 mL Specimen: Gallbladder to pathology Drains: None Complications: None Indications: The patient is a 36-year-old female who was admitted due to severe upper abdominal pain. Her evaluation included a sonogram which showed gallstones and possible cholecystitis. Surgical treatment was offered by means of a laparoscopic cholecystectomy. The risks of surgery were discussed which include bleeding, infection, bile duct injury, bile leak, pain, the potential for additional surgeries or procedures. The patient understands and would like to proceed. Description: The patient was taken to the operating room and laid supine on the operating table. General anesthesia was performed. The abdomen was prepped with ChloraPrep and draped in a standard surgical fashion. A small infraumbilical incision was made with a scalpel. The Veress needle was then inserted and a pneumoperitoneum was then created. A 5 mm trocar was then inserted and the laparoscope was introduced. In the upper midabdomen a 5 mm trocar was inserted and in the right upper quadrant two 2.3 mm mini lap graspers were inserted. 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 The cystic duct was dissected free from surrounding tissues. One clip was placed on the duct near the gallbladder junction. An opening was made in the duct and a cholangiocatheter placed within and secured with a clip. Using contrast dye and fluoroscopy an intraoperative cholangiogram was performed that appeared unremarkable. The clip and catheter were then withdrawn. Three clips were placed on the cystic duct and it was divided. The cystic artery was then identified, dissected free, doubly clipped and divided as well. The gallbladder was then mobilized away from the liver with cautery. The umbilical 5 millimeter trocar was exchanged for an 11 millimeter trocar. The gallbladder was then placed in an endoscopic bag and extracted at the umbilical trocar site. The gallbladder had to be opened and the stones crushed to facilitate extraction. The fascia there was then closed with an 0 Vicryl suture. All blood and irrigation fluid was suctioned and hemostasis was good. The remaining ports were removed and the pneumoperitoneum was relieved. The skin incisions were injected with half percent Marcaine with epinephrine, and all were closed using 4-0 Monocryl suture. Steri-Strips and dressings were then applied. The patient tolerated the procedure well and was sent to the recovery room in stable condition. At the end of the case all counts were correct. WILVER BARAKAT MD Oct 02, 2016 16:20
[2016-10-02] MEDS ORDERED: oxyCODONE/APAP 5/325 1 TAB TABLET PO PRN ×2 (16:30)
[2016-10-02 19:40] VITALS: BP 120/74
[2016-10-02 23:55] VITALS: BP 104/67
--- NOTE | 2016-10-03 00:04 | ACF ---
Admission Forms Criteria ABDOMINAL PAIN Clinical Indications for Admission to Inpatient Care (Place 'X' for any and all applicable criteria): Admission is indicated for ANY ONE of the following(1)(2)(3)(4)(5): [X]I. Inpatient admission required rather than observation care (Also use Abdominal Pain: Observation Care, as appropriate) because of ANY ONE of the following: [ ]a) Severe pain requiring acute inpatient management [X]b) Identification of etiology/finding that requires inpatient care (eg, aortic dissection, free air) [ ]c) Absent bowel sounds with complete ileus(6) [ ]d) Suspected toxic megacolon [ ]e) Severe electrolyte abnormalities requiring inpatient care [ ]f) High fever or infection requiring inpatient admission as indicated by ANY ONE of following(7)(8): [ ] i) Appropriate outpatient or observational care antimicrobial treatment unavailable, not effective, or not feasible [ ] ii) Documented bacteremia [ ] iii) Temperature > 104.9 degrees F (oral) [ ] iv) T >103.1 F (oral) or < 96.8 F(rectal) that does not respond to all emergency treatment measures [ ]g) Signs of intestinal obstruction [B] [ ]h) Hemodynamic instability [ ]i) IV fluid to replace significant ongoing losses (greater than 3 L/m2 per day) (12)(13) [ ]j) Percutaneous or open drainage (eg, abscess, biliary tract ) procedures [ ]k) Parenteral nutrition regimen that must be implemented on inpatient basis [ ]l) Other condition,treatment or monitoring requiring inpatient admission. [ ]II. Peritoneal signs present [ ]III. Surgery needed that cannot be performed on an ambulatory basis. [ ]IV. Evaluation requires patient to not eat or drink for extended period ( eg, more than 24 hours). [ ]V. Contraindications and/or Inappropriate clinical situations for Observational Care in patients with abdominal pain, when ANY ONE of the following is required: [ ]a) Thorough evaluation is required to prevent catastrophic events due to delays in diagnosing (e.g.Mesenteric ischemia) 1,3 [ ]b) Patient with severe pathology or with chronic symptoms unlikely to improve in the ED stay (3) [ ]. General contraindications and/or Inappropriate clinical situations for Observational Care in patients with abdominal pain, when ANY ONE of the following is required: [ ]a) Prediction of prolongation of LOS based on ANY ONE of the following may be considered as a contraindication for observational care 2, 3, 4, 5, 6, 7, 8, 9, 10, 11 [ ]i) Age > 65 yrs. [ ]ii) Patient arriving by ambulance [ ]iii) Patient with high acuity [ ]iv) Patient requiring vital sign monitoring [ ]v) Patient on IV medication [ ]b) Systolic blood pressures 180mmHg 3,12 [ ]c) Patient with altered mental status including delirium and other alteration of consciousness, (3) [ ]d) Patient whose discharge disposition will be to a shelter home or rehabilitation home should not be managed in Emergency Department Observation Unit. CMS rule requires 3 days hospital stay before such placement.3,13 [ ]e) Patient with failure to thrive due to broad array of etiologies 3,16,17 [ ]f) Inability to ambulate 3,14 Extended stay beyond goal length of stay may be needed for(2)(3): [ ]a) Persistent abdominal pain with suspected intra-abdominal process [ ]b) Diagnosed condition requiring continued stay (e.g., pancreatitis, complicated diverticulitis) [ ]c) Surgery (e.g., colectomy) The original [facility] content created by [email or web address] has been revised. The portions of the content which have been revised are identified through the use of italic text or in bold, and [facility] has neither reviewed nor approved the modified material.All other unmodified content is copyright [facility]. Please see references footnoted in the original [facility] edition 2016 Admission Criteria Met?: Yes JOSE SANDERS Oct 03, 2016 00:04
[2016-10-03 03:00] VITALS: BP 117/77
[2016-10-03 05:12] LABS: MAGNESIUM 1.6 mg/dL (1.8-2.4); POTASSIUM 4.1 mmol/L (3.5-5.1)
[2016-10-03] MEDS: IV NORMAL SALINE 1000ML BAG 1,000 ML IV SCH ×2 (06:00→13:38)
[2016-10-03 07:10] VITALS: BP 117/66
--- NOTE | 2016-10-03 07:45 | PDOC ---
PROGRESS NOTES Subjective Subjective doing well, sore at upper incision Objective Objective Vital Signs Date Time Temp Pulse Resp B/P (MAP) Pulse Ox O2 Delivery O2 Flow Rate FiO2 10/03/16 07:10 98.5 62 17 117/66 (83) 95 Room Air 98.5 10/02/16 21:37 2.0 Intake and Output 10/03/16 07:00 Intake Total 1150 ml Output Total 50 ml Balance 1100 ml Intake Oral 400 ml IV Total 750 ml Output Urine Total 40 ml Estimated Blood Loss 10 ml # Voids 5 Physical Exam Abdomen: Soft (tender at incision) Assessment Assessment Problems Medical Problems: (1) Cholecystitis, acute with cholelithiasis Status: Acute Plan Plan of Care OK to discharge today, FU with Dr Barakat in 2 weeks, call for appt [phone] Comment Review of Relevant I have reviewed the following items randa (where applicable) has been applied. Labs Laboratory Tests Test 10/01/16 22:41 10/01/16 23:45 10/02/16 00:01 10/02/16 00:30 Bedside Urine HCG, Qualitative Hcg negative (Negative) Urine Collection Type Unknown Urine Color Yellow Urine Clarity Cloudy Urine pH 6.0 Urine Specific [place] 1.015 Urine Protein Negative mg/dL (NEG-TRACE) Urine Glucose (UA) Negative mg/dL (NEG) Urine Ketones (Stick) Negative mg/dL (NEG) Urine Blood Negative (NEG) Urine Nitrite Negative (NEG) Urine Bilirubin Negative (NEG) Urine Urobilinogen Dipstick 1.0 mg/dL (0.2 mg/dL) Urine Leukocyte Esterase Moderate (NEG) Urine RBC Occ /HPF (0-2) Urine WBC 11-20 /HPF (0-4) Urine Squamous Epithelial Cells Many /LPF Urine Bacteria Many /HPF (0-FEW) Urine Mucus Marked /LPF Urine Opiates Screen Neg (NEG) Urine Methadone Screen Neg (NEG) Urine Barbiturates Neg (NEG) Urine Phencyclidine Screen Neg (NEG) Urine Amphetamine/Methamphetamine Neg (NEG) Urine Benzodiazepines Screen Neg (NEG) Urine Cocaine Screen Neg (NEG) Urine Cannabinoids Screen Pos (NEG) Urine Ethyl Alcohol Neg (NEG) White Blood Count 13.3 x10^3/uL (4.0-11.0) Red Blood Count 3.69 x10^6/uL (3.50-5.40) Hemoglobin 11.6 g/dL (12.0-15.5) Hematocrit 35.1 % (36.0-47.0) Mean Corpuscular Volume 95 fL (79-100) Mean Corpuscular Hemoglobin 31 pg (25-35) Mean Corpuscular Hemoglobin Concent 33 g/dL (31-37) Red Cell Distribution Width 13.5 % (11.5-14.5) Platelet Count 217 x10^3/uL (140-400) Neutrophils (%) (Auto) 66 % (31-73) Lymphocytes (%) (Auto) 24 % (24-48) Monocytes (%) (Auto) 7 % (0-9) Eosinophils (%) (Auto) 2 % (0-3) Basophils (%) (Auto) 1 % (0-3) Neutrophils # (Auto) 8.9 x10^3uL (1.8-7.7) Lymphocytes # (Auto) 3.2 x10^3/uL (1.0-4.8) Monocytes # (Auto) 0.9 x10^3/uL (0.0-1.1) Eosinophils # (Auto) 0.3 x10^3/uL (0.0-0.7) Basophils # (Auto) 0.1 x10^3/uL (0.0-0.2) Sodium Level 142 mmol/L (136-145) Potassium Level 2.8 mmol/L (3.5-5.1) Chloride Level 103 mmol/L (98-107) Carbon Dioxide Level 29 mmol/L (21-32) Anion Gap 10 (6-14) Blood Urea Nitrogen 6 mg/dL (7-20) Creatinine 0.9 mg/dL (0.6-1.0) Estimated GFR (Cockcroft-Gault) 84.8 BUN/Creatinine Ratio 7 (6-20) Glucose Level 98 mg/dL (70-99) Calcium Level 9.5 mg/dL (8.5-10.1) Total Bilirubin 1.2 mg/dL (0.2-1.0) Aspartate Amino Transf (AST/SGOT) 23 U/L (15-37) Alanine Aminotransferase (ALT/SGPT) 39 U/L (14-59) Alkaline Phosphatase 52 U/L (46-116) Total Protein 8.0 g/dL (6.4-8.2) Albumin 4.5 g/dL (3.4-5.0) Albumin/Globulin Ratio 1.3 (1.0-1.7) Lipase 86 U/L (73-393) Test 10/02/16 06:59 10/02/16 11:55 10/02/16 15:28 10/02/16 17:20 Glucose (Fingerstick) 91 mg/dL (70-99) 79 mg/dL (70-99) 137 mg/dL (70-99) 122 mg/dL (70-99) Test 10/02/16 20:59 10/03/16 03:40 Glucose (Fingerstick) 119 mg/dL (70-99) Potassium Level 4.1 mmol/L (3.5-5.1) Magnesium Level 1.6 mg/dL (1.8-2.4) Thyroid Stimulating Hormone (TSH) 0.430 uIU/mL (0.358-3.74) Laboratory Tests Test 10/02/16 11:55 10/02/16 15:28 10/02/16 17:20 10/02/16 20:59 Glucose (Fingerstick) 79 mg/dL (70-99) 137 mg/dL (70-99) 122 mg/dL (70-99) 119 mg/dL (70-99) Test 10/03/16 03:40 Potassium Level 4.1 mmol/L (3.5-5.1) Magnesium Level 1.6 mg/dL (1.8-2.4) Thyroid Stimulating Hormone (TSH) 0.430 uIU/mL (0.358-3.74) Medications Current Medications Fentanyl Citrate (Fentanyl 2ml Vial) 25 mcg PRN Q15MIN PRN IV PAIN GREATER THAN 3/10 Last administered on 10/02/16 01:57; Start 10/02/16 at 00:45; Stop at 00:44; Status DC Sodium Chloride 1,000 ml @ 1,000 mls/hr Q1H IV Last administered on 10/02/16 01:03; Start 10/02/16 at 00:45; Stop 10/02/16 at 01:44; Status DC Ondansetron HCl (Zofran) 4 mg 1X ONCE IV Last administered on 7/18/17at 01:02 ; Start 10/02/16 at 00:45; Stop 10/02/16 at 00:46; Status DC Potassium Chloride 40 meq/ Sodium Chloride 1,020 ml @ 75 mls/hr 1X ONCE IV Last administered on 10/02/16 01:56; Start 10/02/16 at 01:30; Stop 10/02/16 at 15:05; Status DC Ceftriaxone Sodium 50 ml @ 100 mls/hr 1X ONCE IV Last administered on 04:58; Start 10/02/16 at 02:00; Stop 10/02/16 at 02:29; Status DC Ondansetron HCl (Zofran) 4 mg PRN Q8HRS PRN IV NAUSEA/VOMITING Last administered on 10/02/16 17:57; Start 10/02/16 at 02:30; Stop 10/03/16 at 02:29 ; Status DC Fentanyl Citrate (Fentanyl 2ml Vial) 50 mcg PRN Q1HR PRN IV PAIN Last administered on 10/02/16 20:56; Start 10/02/16 at 02:30; Stop 10/03/16 at 02:29 ; Status DC Sodium Chloride 1,000 ml @ 125 mls/hr Q8H IV ; Start 10/02/16 at 02:30; Stop at 17:04; Status DC Acetaminophen (Tylenol) 650 mg PRN Q4HRS PRN PO FEVER; Start 10/02/16 at 02:30 ; Stop 10/03/16 at 02:29; Status DC Insulin Aspart (NovoLOG) 0-5 UNITS TIDWMEALS SQ ; Start 10/02/16 at 08:00 Dextrose (Dextrose 50%-Water Syringe) 12.5 gm PRN Q15MIN PRN IV SEE COMMENTS; Start 10/02/16 at 02:30 Potassium Chloride (KCl Oral Soln) 40 meq 1X ONCE PO Last administered on 10/02 03:37; Start 10/02/16 at 02:45; Stop 10/02/16 at 02:46; Status DC Ondansetron HCl (Zofran) 4 mg PRN Q6HRS PRN IV NAUSEA/VOMITING; Start 10/02/16 at 10:15; Stop 10/03/16 at 10:14 Fentanyl Citrate (Fentanyl 2ml Vial) 25 mcg PRN Q5MIN PRN IV MILD PAIN Last administered on 10/02/16 16:09; Start 10/02/16 at 10:15; Stop 10/03/16 at 10:14 Fentanyl Citrate (Fentanyl 2ml Vial) 50 mcg PRN Q5MIN PRN IV MODERATE PAIN; Start 10/02/16 at 10:15; Stop 10/03/16 at 10:14 Morphine Sulfate 1 mg PRN Q10MIN PRN IV SEVERE PAIN Last administered on 15:43; Start 10/02/16 at 10:15; Stop 10/03/16 at 10:14 Ringer's Solution 1,000 ml @ 30 mls/hr Q24H IV ; Start 10/02/16 at 10:03; Stop 10/02/16 at 11:36; Status DC Lidocaine HCl 2 ml PRN 1X PRN ID PRIOR TO IV START; Start 10/02/16 at 10:15; Stop 10/03/16 at 10:14 Hydromorphone HCl (Dilaudid) 0.5 mg PRN Q10MIN PRN IV SEV PAIN, Second choice; Start 10/02/16 at 10:15; Stop 10/03/16 at 10:14 Prochlorperazine Edisylate (Compazine) 5 mg PACU PRN PRN IV NAUSEA, MRX1; Start 10/02/16 at 10:15; Stop 10/03/16 at 10:14 Ceftriaxone Sodium 1 gm/ Sodium Chloride 50 ml @ 100 mls/hr Q24H IV Last administered on 10/03/16 07:35; Start 10/02/16 at 10:30 Ringer's Solution 1,000 ml @ 30 mls/hr Q24H IV Last administered on 10/02/16 13:38; Start 10/02/16 at 14:30; Stop 10/02/16 at 17:04; Status DC Cefazolin Sodium/ Dextrose 50 ml @ 100 mls/hr 1X ONCE IV Last administered on 10/02/16 14:15; Start 10/02/16 at 14:00; Stop 10/02/16 at 14:32; Status DC Propofol 20 ml @ As Directed STK-MED ONCE IV ; Start 10/02/16 at 13:13; Stop at 13:14; Status DC Lidocaine HCl (Lidocaine Pf 2% Vial) 5 ml STK-MED ONCE .ROUTE ; Start 10/02/16 at 13:13; Stop 10/02/16 at 13:14; Status DC Fentanyl Citrate (Fentanyl 2ml Vial) 100 mcg STK-MED ONCE .ROUTE ; Start at 13:13; Stop 10/02/16 at 13:14; Status DC Rocuronium [place] (Zemuron) 50 mg STK-MED ONCE .ROUTE ; Start 10/02/16 at 13:14 ; Stop 10/02/16 at 13:15; Status DC Cellulose 1 each STK-MED ONCE .ROUTE ; Start 10/02/16 at 13:39; Stop 10/02/16 at 13:40; Status DC Iohexol (Omnipaque 300 Mg/ml) 50 ml STK-MED ONCE .ROUTE Last administered on t 14:25; Start 10/02/16 at 13:39; Stop 10/02/16 at 13:40; Status DC Bupivacaine HCl/ Epinephrine Bitart (Marcaine-Epi 0.5%-1:[id number]) 50 ml STK-MED ONCE .ROUTE Last administered on 10/02/16 14:25; Start 10/02/16 at 13:39; Stop 10/02/16 at 13:40; Status DC Desflurane (Suprane) 90 ml STK-MED ONCE IH ; Start 10/02/16 at 13:55; Stop 10/02 at 13:56; Status DC Phenylephrine HCl 1 mg STK-MED ONCE IV ; Start 10/02/16 at 14:09; Stop 10/02/16 at 14:10; Status DC Dexamethasone Sodium Phosphate (Decadron) 20 mg STK-MED ONCE .ROUTE ; Start at 14:09; Stop 10/02/16 at 14:10; Status DC Ondansetron HCl (Zofran) 4 mg STK-MED ONCE .ROUTE ; Start 10/02/16 at 14:09; Stop 10/02/16 at 14:10; Status DC Glycopyrrolate (Robinul) 1 mg STK-MED ONCE .ROUTE ; Start 10/02/16 at 14:51; Stop 10/02/16 at 14:52; Status DC Neostigmine Methylsulfate 5 mg STK-MED ONCE .ROUTE ; Start 10/02/16 at 14:52; Stop 10/02/16 at 14:53; Status DC Fentanyl Citrate (Fentanyl 2ml Vial) 100 mcg STK-MED ONCE .ROUTE ; Start at 15:11; Stop 10/02/16 at 15:12; Status DC Oxycodone/ Acetaminophen (Percocet 5/325) 1 tab PRN Q4HRS PRN PO PAIN; Start at 16:30 Oxycodone/ Acetaminophen (Percocet 5/325) 2 tab PRN Q4HRS PRN PO PAIN; Start at 16:30 Sodium Chloride 1,000 ml @ 100 mls/hr Q10H IV Last administered on 10/03/16 06:00; Start 10/02/16 at 20:00 Prochlorperazine Edisylate (Compazine) 10 mg PRN Q6HRS PRN IV NAUSEA/VOMITING Last administered on 10/02/16 20:13; Start 10/02/16 at 20:00 Active Scripts Active Reported Voltaren (Diclofenac Sodium) 100 Gm Gel..gram. 1 Gm TP PRN PRN Acetaminophen-Cod #3 Tablet (Acetaminophen/Codeine Phosphate) 1 Each Tablet 1 Tab PO PRN Q6HRS PRN Amitriptyline Hcl 75 Mg Tablet 1 Tab PO QHS Metformin Hcl Er (Metformin Hcl) 500 Mg Tab.er.24h 1 Tab PO DAILY Xanax (Alprazolam) 0.5 Mg Tablet 0.5 Mg PO PRN Q6HRS PRN Xanax (Alprazolam) 0.25 Mg Tablet Unknown Dose PO PRN Q6HRS PRN [Waterpill] Tramadol Hcl 50 Mg Tablet 50 Mg PO Q6H PRN Trazodone Hcl 50 Mg Tablet Unknown Dose PO DAILY Prozac (Fluoxetine Hcl) 20 Mg Capsule Unknown Dose PO DAILY Amitriptyline Hcl 10 Mg Tablet Unknown Dose PO DAILY Vitals/I & O Vital Sign - Last 24 Hours 10/02/16 10/02/16 10/02/16 10/02/16 08:00 08:53 11:17 13:34 Temp 98.5 98.5 98.5 98.5 Pulse 59 48 Resp 18 15 B/P (MAP) 91/53 (66) 119/67 Pulse Ox 97 96 O2 Delivery Room Air Room Air Room Air Room Air 10/02/16 10/02/16 10/02/16 10/02/16 15:17 15:17 15:32 15:43 Temp 98.9 98.9 Pulse 73 54 Resp 12 12 14 B/P (MAP) 151/84 156/83 Pulse Ox 100 100 98 O2 Delivery Simple Mask Mask Simple Mask Room Air O2 Flow Rate 10 10 10 10/02/16 10/02/16 10/02/16 10/02/16 15:47 16:00 16:02 16:17 Temp 97.6 97.6 Pulse 46 48 49 Resp 14 12 12 B/P (MAP) 157/84 147/84 123/80 Pulse Ox 100 100 100 O2 Delivery Nasal Cannula Nasal Cannula Nasal Cannula Nasal Cannula O2 Flow Rate 2 2 2 2 10/02/16 10/02/16 10/02/16 10/02/16 16:40 16:40 17:46 19:40 Temp 98.2 98.2 Pulse 53 Resp 16 B/P (MAP) 120/74 (89) Pulse Ox 100 100 100 O2 Delivery Nasal Cannula Nasal Cannula Nasal Cannula Room Air O2 Flow Rate 2.0 2.0 2.0 10/02/16 10/02/16 10/02/16 10/02/16 20:00 20:56 21:37 23:55 Temp 98.0 98.0 Pulse 48 Resp 16 B/P (MAP) 104/67 (79) Pulse Ox 100 O2 Delivery Nasal Cannula Nasal Cannula Nasal Cannula Room Air O2 Flow Rate 2.0 2.0 2.0 10/03/16 10/03/16 03:00 07:10 Temp 98.6 98.5 98.6 98.5 Pulse 51 62 Resp 17 17 B/P (MAP) 117/77 (90) 117/66 (83) Pulse Ox 97 95 O2 Delivery Room Air Room Air Intake and Output 10/02/16 10/02/16 10/03/16 15:00 23:00 07:00 Intake Total 50 ml 800 ml 300 ml Output Total 50 ml Balance 50 ml 750 ml 300 ml WILVER BARAKAT MD Oct 03, 2016 07:45
[2016-10-03] MEDS ORDERED: HYDROmorphone 2 MG/ML VIAL IVP PRN (08:00)
[2016-10-03] MEDS ORDERED: KETOROLAC TROMETHAMINE 30 MG/ML INJ. IV PRN (08:00)
[2016-10-03] MEDS: INSULIN ASPART 300 UNITS/3 ML INSULN.PEN SQ SCH ×2 (08:00→11:42)
[2016-10-03 10:46] VITALS: BP 116/72
[2016-10-03] MEDS ORDERED: OXYC1TAB7 PO (11:55)
--- NOTE | 2016-10-03 19:32 | PDOC3 ---
Discharge Summary* Date of Admission: Oct 02, 2016 Date of Discharge: Oct 03, 2016 Admitting Diagnosis Cholecystitis, acute with cholelithiasis Problems: Final Diagnosis Problems Medical Problems: (1) Cholecystitis, acute with cholelithiasis Status: Acute Brief Hospital Course Ms. Coon is a 36 old [sex] who presented with [ ] Scheduled Amitriptyline Hcl (Amitriptyline Hcl), Unknown Dose PO DAILY, (Reported) Amitriptyline Hcl (Amitriptyline Hcl), 1 TAB PO QHS, (Reported) Fluoxetine Hcl (Prozac), Unknown Dose PO DAILY, (Reported) Metformin Hcl (Metformin Hcl Er), 1 TAB PO DAILY, (Reported) Trazodone Hcl (Trazodone Hcl), Unknown Dose PO DAILY, (Reported) Scheduled PRN Acetaminophen With Codeine (Acetaminophen-Cod #3 Tablet), 1 TAB PO PRN Q6HRS PRN for PAIN, (Reported) Alprazolam (Xanax), Unknown Dose PO PRN Q6HRS PRN for ANXIETY / AGITATION, ( Reported) Alprazolam (Xanax), 0.5 MG PO PRN Q6HRS PRN for ANXIETY / AGITATION, (Reported) Diclofenac Sodium (Voltaren), 1 GM TP PRN PRN for PAIN, (Reported) Oxycodone Hcl/Acetaminophen (Oxycodone-Acetaminophen 5-325), 1-2 TAB PO PRN Q4HRS PRN for PAIN Tramadol Hcl (Tramadol Hcl), 50 MG PO Q6H PRN for PAIN, (Reported) Miscellaneous Medications [Waterpill], (Reported) Time Spent Total time spent with patient [] minutes for coordination of care, counseling, and education. TREY GUADALUPE MD Oct 03, 2016 19:32
--- NOTE | 2016-10-04 17:59 | PATHOLOGY ---
PATHOLOGY REPORT * * * * * * * * FINAL DIAGNOSIS: Gallbladder, laparoscopic cholecystectomy: - Cholelithiasis. - Chronic cholecystitis. COMMENT: There is no evidence of malignancy. (JPM:mgr; 10/04/2016) REPORT ELECTRONICALLY SIGNED BY: Edu Bob M.D. DATE/TIME: 10/04/2016 17:59 * * * * * * * * GROSS PATHOLOGY: Received in formalin labeled "Estephanie Coon, gallbladder and contents," is a 6.8 x 2.0 x 1.5 cm, previously opened gallbladder with yellow green, bile stained serosal surfaces. Opening the gallbladder reveals escalante brown, velvety mucosa and an average wall thickness of 0.3 cm. Calculi are present and no masses are noted grossly. Icu Nurse sections from the body and fundus are submitted along with the proximal margin in cassette A1. (JPM; 10/03/16) INITIAL CPT CODE(S): A; 01970 Professional services performed [place] [address] Technical services performed by [facility] at [address] [place] [address]. SPECIMEN(S) RECEIVED: A.Gallbladder and contents CLINICAL HISTORY: Cholecystitis, acute cholelithiasis PATIENT: ESTEPHANIE COON /AGE: 2 1980 (Age: 36) PATIENT #: [id number] ALT CASE #: SPECIMEN COLLECTION DATE: 10/02/2016 SPECIMEN RECEIVED DATE: 10/03/2016 [facility] - [address] [place] [address] - PHONE: [phone] * * * END OF REPORT * * *
== END 2016-10-03 13:45 | disposition home or self-care (01) | DRG 418 ==
LOC: ER 23:26 → 6 SOUTH 10-02 02:02
PROVIDERS: ADMIT Internal Medicine; ATTEND Internal Medicine
PROC: BF121ZZ Fluoroscopy of Gallbladder using Low Osmolar Contrast (ICD-10-PCS; 2016-10-02)
PROC: 0FT44ZZ Resection of Gallbladder, Percutaneous Endoscopic Approach (ICD-10-PCS; principal; 2016-10-02 14:30)
DX: K80.00 Calculus of gallbladder with acute cholecystitis without obstruction (principal); N39.0 Urinary tract infection, site not specified; E11.9 Type 2 diabetes mellitus without complications; E87.6 Hypokalemia; F12.90 Cannabis use, unspecified, uncomplicated; F43.10 Post-traumatic stress disorder, unspecified; I10 Essential (primary) hypertension; F32.9 Major depressive disorder, single episode, unspecified; M79.7 Fibromyalgia; Z88.2 Allergy status to sulfonamides; Z79.899 Other long term (current) drug therapy; Z79.4 Long term (current) use of insulin; Z79.1 Long term (current) use of non-steroidal anti-inflammatories (NSAID); I49.8 Other specified cardiac arrhythmias
CPT/HCPCS: 36415; 74300; 76705; 80053; 81001; 81025; 82962; 83690; 83735; 84132; 84443; 85027; 88304; 93005; 96361; 96374; 96375; 96376; C1769; G0481; J0690; J0696; J0780; J1100; J1815; J1885; J2001; J2270; J2370; J2405; J2704; J2710; J3010; J3480; J3490; J7030; J7120; Q9967; 99285-25; 99291-25

== ENCOUNTER 2016-10-10 18:27 | Emergency (ER) | payer BC ==
[~2016-10-10] VITALS: Ht 160 cm; Wt 58.5 kg
[~2016-10-10 18:27] MED LIST changes: +DICL100G18 TP; +OXYC1TAB7 PO
[2016-10-10 19:49] LABS: BILIRUBIN,URINE NEGATIVE (NEG); GLUCOSE,URINE NEGATIVE (NEG); NITRITE,URINE NEGATIVE (NEG); PROTEIN,URINE NEGATIVE (NEG-TRACE); UROBILINOGEN,URINE 0.2 mg/dL (0.2 mg/dL)
[2016-10-10 19:55] LABS: BACTERIA,URINE FEW /HPF (0-FEW); SQUAMOUS EPITHELIAL CELL,UR MANY /LPF; WBC,URINE OCC /HPF (0-4)
[2016-10-10] MEDS ORDERED: IV NORMAL SALINE 1000ML BAG 1,000 ML IV SCH (20:15)
[2016-10-10] MEDS ORDERED: HYDROcodone/APAP 5/325MG 1 TAB TABLET PO ONE (20:15)
[2016-10-10 20:34] LABS: BASO % 0 % (0-3); EOS % 4 % (0-3); HEMATOCRIT 31.6 % (36.0-47.0); HEMOGLOBIN 10.7 g/dL (12.0-15.5); LYMPH # 2.9 x10^3/uL (1.0-4.8); LYMPH % 29 % (24-48); MEAN CORPUSCULAR HEMOGLOBIN 32 pg (25-35); MEAN CORPUSCULAR HGB CONC 34 g/dL (31-37); MEAN CORPUSCULAR VOLUME 95 fL (79-100); MONO % 7 % (0-9); NEUT % 60 % (31-73); PLATELET COUNT 201 x10^3/uL (140-400); RED BLOOD COUNT 3.31 x10^6/uL (3.50-5.40); RED CELL DISTRIBUTION WIDTH 13.3 % (11.5-14.5); WHITE BLOOD COUNT 9.8 x10^3/uL (4.0-11.0)
[2016-10-10 20:40] LABS: CALCIUM 8.1 mg/dL (8.5-10.1); CREATININE 0.7 mg/dL (0.6-1.0); GFR 113.3; POTASSIUM 3.5 mmol/L (3.5-5.1)
--- NOTE | 2016-10-10 20:48 | RAD ---
EXAM: CT ABDOMEN/PELVIS WITHOUT CONTRAST. HISTORY: Left flank pain and hematuria. TECHNIQUE: Computed tomography of the abdomen and pelvis was performed without intravenous contrast. COMPARISON: None. FINDINGS: Lung windows through the visualized portions of the bases reveal mild atelectasis. Bone windows reveal no suspicious lesions. Mild sclerosis within the left medial iliac bone appears benign. The gallbladder is surgically absent. The liver, pancreas, spleen and adrenal glands are unremarkable without contrast. There are no pathologically enlarged lymph nodes. There are no renal calculi. The kidneys are unremarkable without contrast. There are no ureteral calculi or hydronephrosis. A small amount of free pelvic fluid is likely physiologic. The uterus and ovaries are unremarkable without contrast. The appendix is not inflamed. There is no obstruction. IMPRESSION: 1. No nephroureterolithiasis or hydronephrosis. 2. Small free pelvic fluid is likely physiologic. *One or more of the following individualized dose reduction techniques were utilized for this examination: 1. Automated exposure control. 2. Adjustment of the mA and/or kV according to patient size. 3. Use of iterative reconstruction technique. Electronically signed by: Dyan Bryson MD (10/10/2016 8:45 PM) [facility]
[2016-10-10 21:30] VITALS: BP 113/71
--- NOTE | 2016-10-10 21:38 | PHYS DOC ---
Past Medical History Past Medical History: Other Additional Past Medical Histor: fibromyalgia, prediabetic Past Surgical History: Cholecystectomy, Additional Past Surgical Histo: DNC Alcohol Use: None Drug Use: None Adult General Chief Complaint Chief Complaint: BLOOD IN URINE HPI HPI Patient is a 36 year old female with complaints of vomiting and left-sided back pain radiating to her abdomen in the urine that has been going on for a day and a half. No fevers no chills no rashes. No dysuria, no known trauma. Patient has had recent abdominal surgery, she has been doing well since his surgery. Review of Systems Review of Systems Constitutional: Denies fever or chills [] Respiratory: Denies cough or shortness of breath [] Cardiovascular: No chest pain GI: Denies abdominal pain, nausea, vomiting, bloody stools or diarrhea. He is to left-sided flank pain [] : yes to hematuria [] Musculoskeletal: Denies back pain or joint pain [] Integument: Denies rash or skin lesions [] Neurologic: Denies headache, focal weakness or sensory changes [] Endocrine: Denies polyuria or polydipsia [] Current Medications Current Medications Current Medications Medications (Trade) Dose Ordered Sig/Andressa Start Time Stop Time Status Last Admin Dose Admin Acetaminophen/ Hydrocodone Bitart (Lortab 5/325) 1 tab 1X ONCE 10/10/16 20:15 10/10/16 20:16 DC 10/10/16 20:25 1 TAB Sodium Chloride 1,000 ml @ 1,000 mls/hr Q1H 10/10/16 20:15 10/10/16 21:14 DC 10/10/16 20:26 1,000 MLS/HR Allergies Allergies Allergies Coded Allergies Type Severity Reaction Last Updated Verified Sulfa (Sulfonamide Antibiotics) Allergy Severe swelling 10/02/16 Yes Physical Exam Physical Exam Constitutional: Well developed, well nourished, no acute distress, non-toxic appearance. [] HENT: Normocephalic, atraumatic, Eyes: EOMI, conjunctiva normal, no discharge. [] Neck: Normal range of motion, trachea midline Cardiovascular:Heart rate regular rhythm, no murmur. Normal perfusion Lungs & Thorax: Bilateral breath sounds clear to auscultation [] Abdomen: Bowel sounds normal, soft, no tenderness, no masses, no pulsatile masses. [] Skin: Warm, dry, no erythema, no rash. [] Back: No tenderness, mass mild left CVA tenderness. [] Extremities: No tenderness, no cyanosis, no clubbing, ROM intact, no edema. [] Neurologic: Alert and oriented X 3, no focal deficits noted. [] Psychologic: Affect normal, judgement normal, mood normal. [] Current Patient Data Vital Signs Vital Signs Date Time Temp Pulse Resp B/P (MAP) Pulse Ox O2 Delivery O2 Flow Rate FiO2 10/10/16 21:30 55 113/71 (85) 98 Room Air 10/10/16 19:15 98.2 16 98.2 Lab Values Laboratory Tests Test 10/10/16 18:25 10/10/16 19:15 10/10/16 20:30 POC Urine HCG, Qualitative Hcg negative (Negative) Urine Collection Type Unknown Urine Color Yellow Urine Clarity Clear Urine pH 7.0 Urine Specific [place] <=1.005 Urine Protein Negative mg/dL (NEG-TRACE) Urine Glucose (UA) Negative mg/dL (NEG) Urine Ketones (Stick) Negative mg/dL (NEG) Urine Blood Large (NEG) Urine Nitrite Negative (NEG) Urine Bilirubin Negative (NEG) Urine Urobilinogen Dipstick 0.2 mg/dL (0.2 mg/dL) Urine Leukocyte Esterase Negative (NEG) Urine RBC 1-2 /HPF (0-2) Urine WBC Occ /HPF (0-4) Urine Squamous Epithelial Cells Many /LPF Urine Bacteria Few /HPF (0-FEW) White Blood Count 9.8 x10^3/uL (4.0-11.0) Red Blood Count 3.31 x10^6/uL (3.50-5.40) L Hemoglobin 10.7 g/dL (12.0-15.5) L Hematocrit 31.6 % (36.0-47.0) L Mean Corpuscular Volume 95 fL (79-100) Mean Corpuscular Hemoglobin 32 pg (25-35) Mean Corpuscular Hemoglobin Concent 34 g/dL (31-37) Red Cell Distribution Width 13.3 % (11.5-14.5) Platelet Count 201 x10^3/uL (140-400) Neutrophils (%) (Auto) 60 % (31-73) Lymphocytes (%) (Auto) 29 % (24-48) Monocytes (%) (Auto) 7 % (0-9) Eosinophils (%) (Auto) 4 % (0-3) H Basophils (%) (Auto) 0 % (0-3) Neutrophils # (Auto) 5.9 x10^3uL (1.8-7.7) Lymphocytes # (Auto) 2.9 x10^3/uL (1.0-4.8) Monocytes # (Auto) 0.7 x10^3/uL (0.0-1.1) Eosinophils # (Auto) 0.4 x10^3/uL (0.0-0.7) Basophils # (Auto) 0.0 x10^3/uL (0.0-0.2) Sodium Level 144 mmol/L (136-145) Potassium Level 3.5 mmol/L (3.5-5.1) Chloride Level 107 mmol/L (98-107) Carbon Dioxide Level 31 mmol/L (21-32) Anion Gap 6 (6-14) Blood Urea Nitrogen 6 mg/dL (7-20) L Creatinine 0.7 mg/dL (0.6-1.0) Estimated GFR (Cockcroft-Gault) 113.3 Glucose Level 101 mg/dL (70-99) H Calcium Level 8.1 mg/dL (8.5-10.1) L Laboratory Tests 10/10/16 20:30 Laboratory Tests 10/10/16 20:30 EKG EKG [] Radiology/Procedures Radiology/Procedures CT report reviewed and it has been discussed with the patient. [] Course & Med Decision Making Course & Med Decision Making Pertinent Labs and Imaging studies reviewed. (See chart for details) [id number] patient reevaluated and found not to be in no distress. I explained the findings of the labs to the patient as well as the CT scan, I discussed the need for reevaluation and reexamination by PCP in 1-2 days. I also explained that at that time if the hematuria has no cleared the patient may need a referral to urology, patient understands and agrees to follow up as directed. [] Dragon Disclaimer Dragon Disclaimer This electronic medical record was generated, in whole or in part, using a voice recognition dictation system. Departure Departure Impression: Primary Impression: Hematuria Additional Impression: Anemia Disposition: 01 HOME, SELF-CARE Condition: STABLE Referrals: GABRIEL MARTINEZ DO (PCP) please follow with her doctor to have your hemoglobin rechecked as well the urine. If no improvement yourDr. may have to refer you to a urologist for further evaluation Patient Instructions: Anemia, Nonspecific-Brief, Hematuria, Adult Problem Qualifiers Levar MCGRAW MD Oct 10, 2016 21:38
== END 2016-10-10 21:55 | disposition home or self-care (01) ==
LOC: ER 18:27
DX: R31.9 Hematuria, unspecified (principal); D64.9 Anemia, unspecified; M54.89 Other dorsalgia; M79.7 Fibromyalgia; Z88.2 Allergy status to sulfonamides
CPT/HCPCS: 36415; 74176; 80048; 81001; 81025; 85027; 96360; 99285; J7030

== ENCOUNTER 2018-08-09 12:18 | Emergency (ER) | payer OTHER, BC ==
[~2018-08-09] VITALS: Ht 160 cm; Wt 54.0 kg
[~2018-08-09 12:18] MED LIST changes: +TRAZ-118 PO; -TRAZ50TA15 PO
[2018-08-09 12:25] VITALS: BP 121/67
[2018-08-09] MEDS ORDERED: HYDR-3164 PO (12:37)
[2018-08-09] MEDS ORDERED: PENI500T PO (12:37)
[2018-08-09] MEDS ORDERED: CHLO15MO2 PO (12:38)
[2018-08-09] MEDS ORDERED: METHOCARBAMOL 750 MG TABLET PO ONE (12:45)
[2018-08-09] MEDS ORDERED: IBUPROFEN 400 MG TABLET. PO ONE (12:45)
[2018-08-09] MEDS ORDERED: METH-38 PO (12:48)
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
== END 2018-08-09 12:55 | disposition home or self-care (01) ==
LOC: ER 12:18
DX: S16.1XXA Strain of muscle, fascia and tendon at neck level, initial encounter (principal); M54.9 Dorsalgia, unspecified; R10.9 Unspecified abdominal pain; M25.551 Pain in right hip; M25.552 Pain in left hip; Z98.890 Other specified postprocedural states; Z90.49 Acquired absence of other specified parts of digestive tract; Z88.2 Allergy status to sulfonamides; V43.52XA Car driver injured in collision with other type car in traffic accident, initial encounter; Y93.89 Activity, other specified; Y92.410 Unspecified street and highway as the place of occurrence of the external cause; Y99.8 Other external cause status
CPT/HCPCS: 99283